=== PATIENT | male | born 1980 | race Hispanic/Latino ===

== ENCOUNTER 2020-08-13 11:33 | Emergency (ER) | payer OTHER ==
[~2020-08-13] VITALS: Ht 175.3 cm; Wt 75.7 kg
[2020-08-13] MEDS ORDERED: NAPROSYN500 MG PO (13:12)
[2020-08-13] MEDS ORDERED: SODIUM CHLORIDE 0.9% 1000ML 1,000 ML IV SCH ×2 (14:00)
[2020-08-13] MEDS ORDERED: IPRATROPIUM/ALBUTEROL SULFATE 4 GM INH INH SCH (15:00)
[2020-08-13] MEDS ORDERED: PIPER-TAZ 3.375 GM 50 ML IV SCH (18:00)
== END 2020-08-13 13:40 | disposition home or self-care (01) ==
LOC: FSED 11:54
DX: S83.91XA Sprain of unspecified site of right knee, initial encounter (principal); M25.561 Pain in right knee; Y93.66 Activity, soccer; Y92.322 Soccer field as the place of occurrence of the external cause
CPT/HCPCS: 99284